=== PATIENT | female | born 1990 | race Caucasian/White ===

== ENCOUNTER → 2018-03-09 17:04 | Observation (INO) ==
[2018-03-09 15:54] LABS: Basophils % 0.1 %; Eosinophils # 0.1 K/mcL (0.0-0.6); Eosinophils % 0.4 %; Hematocrit 33.9 % (35.3-44.9); Hemoglobin 11.5 g/dL (11.5-15.4); Immature Granulocytes % 0.4 % (0-4); Lymphocytes # 2.1 K/mcL (0.6-4.6); Lymphocytes % 14.2 %; Mean Corpuscular HGB Conc 33.9 g/dL (31.6-35.5); Mean Corpuscular Hemoglobin 30.7 pg (28.0-33.3); Mean Corpuscular Volume 90.6 fL (83.0-100.0); Mean Platelet Volume 10.3 fL (9.4-12.4); Monocytes # 0.9 K/mcL (0.0-1.3); Neutrophils # 11.7 K/mcL (1.6-8.9); Platelet Count 354 K/mcL (140-400); Red Blood Count 3.74 M/mcL (3.82-4.97); Red Cell Distribution Width 13.9 % (11.5-14.5); Segmented Neutrophils % 78.9 %
[2018-03-09 16:16] LABS: Alanine Aminotransferase 27 Units/L (7-52); Aspartate Amino Transferase 35 Units/L (13-39); BUN/Creatinine Ratio 18 (6-26); Blood Urea Nitrogen 9 mg/dL (6-20); Lactate Dehydrogenase 190 Units/L (140-271); Uric Acid 4.2 mg/dL (2.3-7.6); eGFR For Non-African Americans > 60 (> 60)
[2018-03-09 16:16] LABS: Amphetamine Screen,Urine Negative ng/mL (Cutoff=1000); Barbiturate Screen,Urine Negative ng/mL (Cutoff=200); Benzodiazepines Screen,Urine Negative ng/mL (Cutoff=200); Cannabinoid Screen,Urine Negative ng/mL (Cutoff = 50); Cocaine Screen,Urine Negative ng/mL (Cutoff= 300); Opiate Screen,Urine Negative ng/mL (Cutoff=300); Phencyclidine Screen,Urine Negative ng/mL (Cutoff=25)
[2018-03-09 16:16] LABS: Protein/Creatinine Ratio,Urine 0.18 mg/mg (0.00-0.20)
--- NOTE | 2018-03-09 16:57 | Discharge Summary ---
Date of Encounter: 03/09/18 Time of Encounter: 17:00 - Discharge Diagnosis (1) 36 weeks gestation of Priority: Primary Status: Acute Comments: Patient admitted to observation for complaint of headache since Friday She called the office and was advised to come in for evaluation of - induced hypertension (2) NST (non-stress test) reactive Priority: Secondary Status: Acute Comments: FHR 120 bpm, moderate variability, +15x15 accels, no decels. (3) Headache in Priority: Secondary Status: Acute Comments: Patient states she has had a headache since Friday off and on. Blood pressures while in triage all within normal limits PIH labs within normal limits Qualifiers: Trimester: third trimester Qualified Code(s): O26.893 - Other specified related conditions, third trimester; R51 - Headache - Discharge Medications Prescriptions: Blood Pressure Kit-Extra Large [Blood Pressure Monitor] 1 each MC PRN PRN #1 kit PRN Reason: blood pressure monitoring Home Medications: Amoxicillin [Amoxil] 500 mg PO TID #30 capsule 02/28/18 [Rx] Fluticasone Propionate Nasal [Flonase] 120 spray NS DAILY #1 bottle 02/28/18 [Rx] Loratadine/Pseudophed (12 HR) [Claritin D (12HR)] 1 each PO BID #20 tab.er.12h 02/28/18 [Rx] Blood Pressure Kit-Extra Large [Blood Pressure Monitor] 1 each MC PRN PRN #1 kit 03/09/18 [Rx] Pnv95/Ferrous Fumarate/FA [ Vitamin Tablet] 1 tab PO DAILY 03/09/18 [History] Allergies/Adverse Reactions: Allergy/AdvReac Type Severity Reaction Status Date / Time acetaminophen [From Lortab] Allergy SWELLING Verified 03/09/18 15:25 hydrocodone [From Lortab] Allergy SWELLING Verified 03/09/18 15:25 Data Procedures and tests throughout hospitalization: Laboratory Tests 03/09/18 03/09/18 03/09/18 04:00 15:05 15:30 WBC 14.8 H RBC 3.74 L Hgb 11.5 Hct 33.9 L MCV 90.6 MCH 30.7 MCHC 33.9 RDW 13.9 Plt Count 354 MPV 10.3 Immature Gran % 0.4 Seg Neutrophils % 78.9 Lymphocytes % 14.2 Monocytes % 6.0 Eosinophils % 0.4 Basophils % 0.1 Neutrophils # 11.7 H Lymphocytes # 2.1 Monocytes # 0.9 Eosinophils # 0.1 Basophils # 0.0 BUN Creatinine Est GFR ( Amer) Est GFR (Non-Af Amer) BUN/Creatinine Ratio Uric Acid AST ALT Lactate Dehydrogenase Urine Creatinine 97 Protein/Creatinin Ratio 0.18 Urine Total Protein 17 H Urine Opiates Screen Negative Ur Barbiturates Screen Negative Ur Phencyclidine Scrn Negative Ur Amphetamines Screen Negative U Benzodiazepines Scrn Negative Urine Cocaine Screen Negative U Marijuana (THC) Screen Negative Ur Drug Screen Interp See Below 03/09/18 15:30 WBC RBC Hgb Hct MCV MCH MCHC RDW Plt Count MPV Immature Gran % Seg Neutrophils % Lymphocytes % Monocytes % Eosinophils % Basophils % Neutrophils # Lymphocytes # Monocytes # Eosinophils # Basophils # BUN 9 Creatinine 0.51 L Est GFR ( Amer) > 60 Est GFR (Non-Af Amer) > 60 BUN/Creatinine Ratio 18 Uric Acid 4.2 AST 35 ALT 27 Lactate Dehydrogenase 190 Urine Creatinine Protein/Creatinin Ratio Urine Total Protein Urine Opiates Screen Ur Barbiturates Screen Ur Phencyclidine Scrn Ur Amphetamines Screen U Benzodiazepines Scrn Urine Cocaine Screen U Marijuana (THC) Screen Ur Drug Screen Interp Labs on day of discharge: Labs from last 24 hours 03/09/18 03/09/18 03/09/18 15:30 15:30 15:05 WBC 14.8 H RBC 3.74 L Hgb 11.5 Hct 33.9 L MCV 90.6 MCH 30.7 MCHC 33.9 RDW 13.9 Plt Count 354 MPV 10.3 Immature Gran % 0.4 Seg Neutrophils % 78.9 Lymphocytes % 14.2 Monocytes % 6.0 Eosinophils % 0.4 Basophils % 0.1 Neutrophils # 11.7 H Lymphocytes # 2.1 Monocytes # 0.9 Eosinophils # 0.1 Basophils # 0.0 BUN 9 Creatinine 0.51 L Est GFR ( Amer) > 60 Est GFR (Non-Af Amer) > 60 BUN/Creatinine Ratio 18 Uric Acid 4.2 AST 35 ALT 27 Lactate Dehydrogenase 190 Urine Creatinine Protein/Creatinin Ratio Urine Total Protein Urine Opiates Screen Negative Ur Barbiturates Screen Negative Ur Phencyclidine Scrn Negative Ur Amphetamines Screen Negative U Benzodiazepines Scrn Negative Urine Cocaine Screen Negative U Marijuana (THC) Screen Negative Ur Drug Screen Interp See Below 03/09/18 04:00 WBC RBC Hgb Hct MCV MCH MCHC RDW Plt Count MPV Immature Gran % Seg Neutrophils % Lymphocytes % Monocytes % Eosinophils % Basophils % Neutrophils # Lymphocytes # Monocytes # Eosinophils # Basophils # BUN Creatinine Est GFR ( Amer) Est GFR (Non-Af Amer) BUN/Creatinine Ratio Uric Acid AST ALT Lactate Dehydrogenase Urine Creatinine 97 Protein/Creatinin Ratio 0.18 Urine Total Protein 17 H Urine Opiates Screen Ur Barbiturates Screen Ur Phencyclidine Scrn Ur Amphetamines Screen U Benzodiazepines Scrn Urine Cocaine Screen U Marijuana (THC) Screen Ur Drug Screen Interp Date of admission: 03/09/18 14:56 Primary care physician: Alda Georges Discharging clinician: Marilyn Green Anticipated date of discharge: 03/09/18 - Patient Status Disposition: Home, Self-Care Condition: Good Functional capacity at discharge: independent ambulation Overall status at discharge: patient is progressing back to baseline - Discharge Instructions Follow Up With: Alda Georges, [employer]ULTANT [Primary Care Provider] - - Diet and Activity Activity: resume usual activities as tolerated Diet: regular diet Hospital Course [employer] Hospital course: Desiree called the office today with complaints of headache since Friday. She was informed to come to labor and delivery for induced hypertension evaluation. All blood pressures were within normal limits during her stay here and [facility] labs all returned within normal limits as well area she is to see Dr. Osoiro on Friday03/11/2018 for her regular visit. Time Attestation: Total time spent providing and/or coordinating discharge services: Time Spent: Less than 30 minutes Exam - Constitutional General appearance IM: A&O X 3, pleasant, no acute distress, answers questions appropriately - Respiratory Respiratory exam: Present: CTAB - Cardiovascular Cardiovascular exam IM: Present: RRR, +S1, +S2 - GI/Abdominal GI/Abdominal exam IM: normal bowel sounds, soft - Rectal Rectal exam: deferred - Extremities Exam Extremities exam IM: Present: full ROM, normal capillary refill, normal inspection - Neurological Exam Neurological exam: alert, normal gait, oriented X3, reflexes normal - VTE Reasons for not Prescribing Prophylaxis: Treatment not Indicated - Low risk for VTE
== END | disposition home or self-care (01) ==
LOC: 1NENULAB
PROVIDERS: ADMIT Registered Nurse; ATTEND Registered Nurse

== ENCOUNTER → 2018-03-17 16:50 | Observation (INO) ==
[2018-03-17 15:48] LABS: Basophils % 0.2 %; Eosinophils # 0.1 K/mcL (0.0-0.6); Eosinophils % 0.4 %; Hematocrit 34.9 % (35.3-44.9); Hemoglobin 11.5 g/dL (11.5-15.4); Immature Granulocytes % 0.5 % (0-4); Lymphocytes # 1.5 K/mcL (0.6-4.6); Lymphocytes % 11.5 %; Mean Corpuscular Hemoglobin 30.3 pg (28.0-33.3); Mean Corpuscular Volume 92.1 fL (83.0-100.0); Mean Platelet Volume 10.5 fL (9.4-12.4); Monocytes # 0.9 K/mcL (0.0-1.3); Monocytes % 7.1 %; Neutrophils # 10.3 K/mcL (1.6-8.9); Platelet Count 339 K/mcL (140-400); Red Blood Count 3.79 M/mcL (3.82-4.97); Red Cell Distribution Width 14.3 % (11.5-14.5); Segmented Neutrophils % 80.3 %
[2018-03-17 16:05] LABS: Alanine Aminotransferase 19 Units/L (7-52); Aspartate Amino Transferase 24 Units/L (13-39); BUN/Creatinine Ratio 24 (6-26); Blood Urea Nitrogen 10 mg/dL (6-20); Lactate Dehydrogenase 180 Units/L (140-271); Uric Acid 4.1 mg/dL (2.3-7.6); eGFR For Non-African Americans > 60 (> 60)
[2018-03-17 16:09] LABS: Protein/Creatinine Ratio,Urine 0.17 mg/mg (0.00-0.20)
[2018-03-17 16:10] LABS: Amphetamine Screen,Urine Negative ng/mL (Cutoff=1000); Barbiturate Screen,Urine Negative ng/mL (Cutoff=200); Benzodiazepines Screen,Urine Positive ng/mL (Cutoff=200); Cannabinoid Screen,Urine Negative ng/mL (Cutoff = 50); Cocaine Screen,Urine Negative ng/mL (Cutoff= 300); Opiate Screen,Urine Negative ng/mL (Cutoff=300); Phencyclidine Screen,Urine Negative ng/mL (Cutoff=25)
--- NOTE | 2018-03-17 17:00 | OB/GYN Progress Note ---
Date of Encounter: 03/17/18 Time of Encounter: 16:58 - Assessment and Plan (1) 37 weeks gestation of Status: Acute (2) Elevated BP without diagnosis of hypertension Status: Acute Blood pressures within normal range in triage evaluation, all PIH labs negative. Discharged home with labor, PIH, and when to return to triage precautions. After discharge urine tox screen noted to be positive for benzodiazepines, Dr. Osorio updated Subjective - Subjective Interval history: 37+1 gestation patient sent over the office for PIH evaluation. Patient with elevated blood pressures in office, with complaints of slight headache, denies visual changes or right upper quadrant pain. Reports good movement, denies vaginal bleeding or leaking of fluid. Antepartum ROS: movement normal, no loss of fluid, no vaginal bleeding, no contractions Objective - Exam FHR: auscultation normal Abdomen: Present: soft, gravid - Labs Labs: Abnormal lab results WBC 12.8 K/mcL (4.3-11.1) H 03/17/18 15:20 RBC 3.79 M/mcL (3.82-4.97) L 03/17/18 15:20 Hct 34.9 % (35.3-44.9) L 03/17/18 15:20 Neutrophils # 10.3 K/mcL (1.6-8.9) H 03/17/18 15:20 Creatinine 0.42 mg/dL (0.60-1.20) L 03/17/18 15:20 Urine Total Protein 17 mg/dL (1-14) H 03/17/18 15:20 U Benzodiazepines Scrn Positive ng/mL (Rznnlq=050) H 03/17/18 15:20
== END | disposition home or self-care (01) ==
LOC: 1NENULAB
PROVIDERS: ADMIT Advanced Practice Midwife; ATTEND Advanced Practice Midwife